=== PATIENT | male | born 1990 | race Caucasian/White ===

== ENCOUNTER → 2023-05-28 10:27 | Outpatient (BNVA) | payer MEDICARE, OTHER, MEDICAID, SELFPAY | PROVIDERS: PCP Nurse Practitioner Family; Referring Provider Nurse Practitioner; Visit Provider Specialist | DX: G40.109 Localization-related (focal) (partial) symptomatic epilepsy and epileptic syndromes with simple partial seizures, not intractable, without status epilepticus (principal); F84.5 Asperger's syndrome; F42.9 Obsessive-compulsive disorder, unspecified; E66.01 Morbid (severe) obesity due to excess calories; Z68.43 Body mass index [BMI] 50.0-59.9, adult | CPT/HCPCS: 99205 ==

== ENCOUNTER 2023-06-27 12:02 | Outpatient (CLI) | payer MEDICARE, OTHER, MEDICAID, SELFPAY ==
--- NOTE | 2023-06-27 13:00 | MR_ITS ---
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 COMPARISON: None available. TECHNIQUE: Diffusion imaging, multiplanar T1, T2 and FLAIR imaging obtained. No evidence for acute infarct or hemorrhage. [place]-white matter differentiation is normal. Normal monique ocampal formations. No remote or acute infarcts are volume loss. Ventricles and extra-axial spaces are normal. No inferior displacement of cerebellar tonsils. The sella turcica and pituitary gland are unremarkabl e. Dural venous sinuses and [place] of [place] demonstrate no abnormality on this unenhanced studies. Paranasal sinuses: Clear. Mastoid air cells: Moderate RIGHT mastoid air cell effusion. Calvarium and scalp: Intact. IMPRESSION: 1. Unremarkable MRI brain. No prior infarcts or hemorrhage. 2. Normal hippocampus. 3. RIGHT mastoid effusion.
== END 2023-06-27 12:03 | disposition home or self-care (01) ==
LOC: RAD 12:03
PROVIDERS: PCP Nurse Practitioner Family; Visit Provider Specialist
DX: G40.309 Generalized idiopathic epilepsy and epileptic syndromes, not intractable, without status epilepticus (principal); G40.109 Localization-related (focal) (partial) symptomatic epilepsy and epileptic syndromes with simple partial seizures, not intractable, without status epilepticus; H74.8X1 Other specified disorders of right middle ear and mastoid
CPT/HCPCS: 70551